=== PATIENT | male | born 1980 | race Caucasian/White ===

== ENCOUNTER 2017-08-23 11:55 | Emergency (ER) | payer MEDICARE ==
[~2017-08-23] VITALS: Ht 167.6 cm; Wt 75.0 kg
[2017-08-23 11:57] VITALS: BP 150/90; PULSE 75; RESP 16; TEMP 98.9; O2SAT 98
[2017-08-23] MEDS ORDERED: APIX5TAB PO ×2 (12:15)
[2017-08-23] MEDS ORDERED: PAXI30TA7 PO ×2 (12:15)
[2017-08-23] MEDS ORDERED: NOVO7030P2 SQ ×2 (12:15)
--- NOTE | 2017-08-23 12:59 | RADRPT ---
EXAM DATE/TIME: 08/23/2017 12:57 [place] COMPARISON: No previous studies available for comparison. INDICATIONS : Evaluate for foreign body, stepped on nail. MEDICAL HISTORY : Diabetes mellitus type II. SURGICAL HISTORY : None. ENCOUNTER: Initial ACUITY: 2 days PAIN SCORE: 4/10 LOCATION: Left plantar surface of foot. FINDINGS: Three view examination of the left foot demonstrates no soft tissue swelling, dislocation, or fractur e. The tarsal bones appear intact. The interphalangeal and metatarsophalangeal joints are intact. The calcaneus is intact. Bony mineralization is normal. CONCLUSION: Negative exam with no radiopaque foreign body. Gian Deng MD on August 23, 2017 at 12:57 Board Certified Radiologist. This report was verified electronically.
--- NOTE | 2017-08-23 13:22 | PD ---
HPI Chief Complaint: Injury Time Seen by Provider: 12:12 Travel History International Travel<30 days: No Contact w/Intl Traveler<30days: No Traveled to known affect area: No History of Present Illness HPI 37-year-old male presents emergency Department with complaint of a puncture wound to the bottom of his left foot after stepping on a screw yesterday. Unknown tetanus status. Denies paresthesias, loss of sensation, decreased range of motion, decreased strength to the affected extremity. Denies drainage from the wound site. Denies fever, vomiting. Has been taking ibuprofen for symptom management. Pain is worse with palpation and ambulation. Rates pain 8/ 10. Describes it as a throbbing sensation. No known allergies. Has no other medical complaints. No other modifying factors or associated signs and symptoms. PFSH Past Medical History Hx Anticoagulant Therapy: Yes Blood Disorders: Yes (FACTOR 5) Cerebrovascular Accident: Yes Diabetes: Yes Patient Takes Glucophage: No Tetanus Vaccination: Unknown Past Surgical History Cholecystectomy: Yes Social History Alcohol Use: No Tobacco Use: Yes Substance Use: Yes (THC) Allergies-Medications (Allergen,Severity, Reaction): Coded Allergies: No Known Allergies (Verified Allergy, Unknown, 08/23/17) Reported Meds & Prescriptions Reported Meds & Active Scripts Active Reported Eliquis (Apixaban) 5 Mg Tab 5 Mg PO BID Novolin 70-30 Inj (Insulin Human Isoph/Insulin Regular) 1,000 Unit/10 Ml Vial 25 Units SQ BID Paxil (Paroxetine HCl) 30 Mg Tab 30 Mg PO DAILY Review of Systems Except as stated in HPI: all other systems reviewed are Neg Physical Exam Narrative GENERAL: Well-nourished, well-developed male patient, in no acute distress SKIN: Warm and dry. Puncture wound noted to the bottom of the pad of the left foot; without erythema, edema, drainage. No signs of infection. Left lower extremity is supple and nontender with 2+ radial pulses and sensory intact without erythema or edema. No lymphangitis noted. HEAD: Atraumatic. Normocephalic. EYES: Pupils equal and round. No scleral icterus. No injection or drainage. ENT: Mucosa pink and moist. Airway patent. NECK: Trachea midline. CARDIOVASCULAR: Regular rate. RESPIRATORY: No accessory muscle use. GASTROINTESTINAL: Flat. MUSCULOSKELETAL: No obvious deformities. No clubbing. No cyanosis. No edema. NEUROLOGICAL: Awake and alert. Oriented 3. No obvious cranial nerve deficits. Motor grossly within normal limits. Normal speech. PSYCHIATRIC: Appropriate mood and affect; insight and judgment normal. Data Data Last Documented VS Vital Signs Date Time Temp Pulse Resp B/P (MAP) Pulse Ox O2 Delivery O2 Flow Rate FiO2 08/23/17 11:57 98.9 75 16 150/90 (110) 98 Orders Orders Foot, Complete ([id number]) (08/23/17 12:11) Tetanus/Diphtheria Tox Adult (Tetanus/Di (08/23/17 13:30) Ed Discharge Order (08/23/17 13:20) MDM Medical Decision Making Medical Screen Exam Complete: Yes Emergency Medical Condition: Yes Medical Record Reviewed: Yes Differential Diagnosis Puncture wound, tetanus update, medical clearance Narrative Course 37-year-old male with a puncture wound to the bottom of his left foot from screw. Tetanus updated in the ER. Left foot x-ray ordered to rule out foreign body. 1320: Left foot x-ray concludes: Last 24 hours Impressions Foot X-Ray 08/23/17 1211 Signed Impressions: Service Date/Time: July 12:57 - CONCLUSION: Negative exam with no radiopaque foreign body. Gian Deng MD X-ray report discussed with the patient. Instructed patient to follow up with primary care provider. Patient verbalizes understanding and agreement with treatment plan. Patient is medically cleared and stable for discharge. Discussed reasons to return to the emergency department. Patient agrees with treatment plan. The patients vital signs are stable and the patient is stable for outpatient follow-up and treatment. Patient discharged home, stable and in no acute distress. Diagnosis Primary Impression: Puncture wound of left foot Qualified Codes: S91.332A - Puncture wound without foreign body, left foot, initial encounter Referrals: [facility] Primary Care Physician Patient Instructions: General Instructions, Puncture Wound (ED) Additional Instructions: Ibuprofen or Tylenol as directed and as needed for pain Keep area clean and dry Follow-up with primary care provider Return to the emergency department immediately with worsening of symptoms Med/Other Pt SpecificInfo: No Change to Meds, No Meds Exist/No RX given Disposition: 01 DISCHARGE HOME Condition: Stable Laura Aguayo Aug 23, 2017 13:22
[2017-08-23] MEDS ORDERED: TETANUS/DIPHTHERIA TOXOID ADULT 0.5 ML VIAL IM ONE ×2 (13:30)
== END 2017-08-23 13:37 | disposition home or self-care (01) ==
LOC: NEPD 11:55
DX: S91.332A Puncture wound without foreign body, left foot, initial encounter (principal); W26.8XXA Contact with other sharp object(s), not elsewhere classified, initial encounter; Z23 Encounter for immunization
CPT/HCPCS: 73630; 90471; 90714

== ENCOUNTER 2017-09-08 13:13 | Emergency (ER) | payer MEDICARE, MEDICAID ==
[~2017-09-08] VITALS: Ht 170.2 cm; Wt 72.0 kg
[~2017-09-08 13:13] MED LIST: APIX5TAB PO; NOVO7030P2 SQ; PAXI30TA7 PO
[2017-09-08 13:16] VITALS: BP 157/87; PULSE 84; RESP 14; TEMP 98.5; O2SAT 98
[2017-09-08 13:32] VITALS: BP 168/92; PULSE 89; RESP 18; TEMP 98.8; O2SAT 99
--- NOTE | 2017-09-08 13:36 | PD ---
HPI Chief Complaint: Skin Problem Time Seen by Provider: 13:24 Travel History International Travel<30 days: No Contact w/Intl Traveler<30days: No Traveled to known affect area: No History of Present Illness HPI 37-year-old male presents to the emergency department for evaluation of multiple pustules. Patient states that he was seen naproxen 3 weeks ago at another hospital was diagnosed with peritonsillar abscess. He was on clindamycin for a short period time after this. Since being off the clindamycin , he states that he believes "I have a staph infection". He reports a pustule to his gluteal cleft, pustule to his right upper back and a pustule to his left knee. He also reports some erythema to the left upper eyelid. Patient reports history of hypertension, type 2 diabetes, factor V deficiency. He is currently on eliquis, Novolin insulin 70/30, Paxil. Patient states that he has had his symptoms for approximately 10 days. He noticed left upper eyelid swelling yesterday. He is unsure if he has run a fever. Patient is not currently on antibiotics. He is currently afebrile. Severity is mild. No exacerbating or alleviating factors. Patient admits to smoking marijuana, but denies any IV drug use. 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) Past Surgical History Cholecystectomy: Yes Social History Alcohol Use: Yes Tobacco Use: Yes (0.5 ppd) Substance Use: Yes (THC weekly) Allergies-Medications (Allergen,Severity, Reaction): Coded Allergies: No Known Allergies (Verified , 09/08/17) Reported Meds & Prescriptions Reported Meds & Active Scripts Active Reported Eliquis (Apixaban) 5 Mg Tab 5 Mg PO BID Novolin 70-30 Inj (Insulin Human Isoph/Insulin Regular) 1,000 Unit/10 Ml Vial 25 Units SQ BID Paxil (Paroxetine HCl) 30 Mg Tab 30 Mg PO DAILY Review of Systems Except as stated in HPI: all other systems reviewed are Neg Physical Exam Narrative GENERAL: Well-nourished, well-developed male patient, afebrile. SKIN: Focused skin assessment warm/dry. Patient has pustules to the upper back , gluteal cleft, left knee. No surrounding erythema. No evidence of abscess. HEAD: Normocephalic. EYES: No scleral icterus. No injection or drainage. PERRLA. EOM intact. No pain with EOMs. Mild swelling and erythema to left upper eyelid. NECK: Supple, trachea midline. No JVD or lymphadenopathy. CARDIOVASCULAR: Regular rate and rhythm without murmurs, gallops, or rubs. RESPIRATORY: Breath sounds equal bilaterally. No accessory muscle use. Lungs sounds are clear to auscultation. GASTROINTESTINAL: Abdomen soft, non-tender, nondistended. MUSCULOSKELETAL: No cyanosis, or edema. BACK: Nontender without obvious deformity. No CVA tenderness. Data Data Last Documented VS Vital Signs Date Time Temp Pulse Resp B/P (MAP) Pulse Ox O2 Delivery O2 Flow Rate FiO2 09/08/17 13:32 98.8 89 18 168/92 (117) 99 Room Air Orders Orders Blood Glucose (09/08/17 13:36) Sulfamet-Trimeth Ds 800-160 Mg (Bactrim (09/08/17 14:00) Cephalexin (Keflex) (09/08/17 14:00) MDM Medical Decision Making Medical Screen Exam Complete: Yes Emergency Medical Condition: Yes Medical Record Reviewed: Yes Differential Diagnosis Cellulitis versus abscess versus pustule Narrative Course 37-year-old male presents to the emergency department for evaluation of multiple pustules as well as left upper eyelid swelling or erythema. No evidence of orbital cellulitis on exam. Patient is not currently on antibiotics. He is afebrile and not tachycardic. He adamantly denies any history of IV drug use. His glucose is 373. I discussed the case my attending physician, Dr. Singer, who agrees with plan and disposition. I encouraged the patient to follow up with his primary care physician. He is to monitor his blood glucose and takes insulin. He verbalizes agreement and understanding. Patient will be discharged prescription for Bactrim, Keflex, Mupirocin cream. He is given his first dose here. He is to return here for any acute worsening of symptoms. The patient was discharged in stable condition with instructions, including return instructions and follow up instructions. Diagnosis Primary Impression: Cellulitis Qualified Codes: L03.90 - Cellulitis, unspecified Referrals: Primary Care Physician call for appointment Patient Instructions: Cellulitis (ED), General Instructions Additional Instructions: Take antibiotics as directed until gone. Clean twice daily with soap and water and apply prescribed antibiotic ointment. Monitor blood glucose and take your insulin. Managing your blood sugar will help your body fight infection. Follow-up with your primary care physician. Return to the emergency department for any acute worsening of symptoms. Med/Other Pt SpecificInfo: Prescription(s) given Scripts Mupirocin Topical (Mupirocin Topical) 2 % Oint 1 APPLIC TOPICAL BID for Mgmt Bacterial Infection, #1 TUBE 0 Refills Prov: Funmilayo Lara 09/08/17 Cephalexin (Keflex) 500 Mg Cap 500 MG PO Q6H for Infection for 10 Days, #40 CAP 0 Refills Prov: Funmilayo Lara 09/08/17 Sulfamethoxazole-Trimethoprim (Bactrim DS) 800-160 Mg Tab 1 TAB PO BID for Infection, #20 TAB 0 Refills Prov: Funmilayo Lara 09/08/17 Disposition: 01 DISCHARGE HOME Condition: Stable Funmilayo Lara Sep 08, 2017 13:36
[2017-09-08] MEDS ORDERED: CEPH-460 PO (14:00)
[2017-09-08] MEDS ORDERED: BACT800T5 PO (14:00)
[2017-09-08] MEDS ORDERED: MUPI2OIN TOPICAL (14:00)
[2017-09-08] MEDS ORDERED: SULFAMETHOXAZOLE-TRIMETHOPRIM DS 800-160 MG TAB PO ONE (14:00)
[2017-09-08] MEDS ORDERED: CEPHALEXIN MONOHYDRATE 500 MG CAP PO ONE (14:00)
== END 2017-09-08 13:57 | disposition home or self-care (01) ==
LOC: NEPE 13:13
DX: H00.034 Abscess of left upper eyelid (principal); D68.2 Hereditary deficiency of other clotting factors; E11.9 Type 2 diabetes mellitus without complications; Z86.73 Personal history of transient ischemic attack (TIA), and cerebral infarction without residual deficits; Z86.718 Personal history of other venous thrombosis and embolism; Z86.711 Personal history of pulmonary embolism; Z79.4 Long term (current) use of insulin; Z79.899 Other long term (current) drug therapy
CPT/HCPCS: 99284